=== PATIENT | male | born 1975 | race Caucasian/White ===

== ENCOUNTER 2020-06-28 13:51 | Inpatient (IN) | payer OTHER ==
[2020-06-28] MEDS ORDERED: morphine CARPU-JECT 2 MG/1 ML DISP.SYRIN IVPUSH ONE ×2 (16:08→18:46)
[2020-06-28] MEDS ORDERED: VANCOMYCIN 1 GM in D5W (PRE-DOCKED) 1,000 MG/250 ML IVPB ONE (16:09)
[2020-06-28] MEDS ORDERED: PIPERACILLIN/TAZOB 4.5 GM 4.5 GM in DEXTROSE 5%-WATER 100 ML IVPB ONE (16:09)
[2020-06-28] MEDS ORDERED: PIPERACILLIN/TAZOB 4.5 GM 4.5 GM/100 ML BAG IVPB ONE (16:12)
[2020-06-28] MEDS ORDERED: VANCOMYCIN 1 GRAM (PRE-DOCKED) 1,000 MG/250 ML BAG IVPB ONE (16:12)
[2020-06-28] MEDS ORDERED: MORPHINE SULFATE 2 MG/ML VIAL ONE ×2 (16:12→18:50)
[2020-06-28 16:49] LABS: BASO % 0.3 % (0-2.0); EOS % 1.4 % (0-4.5); HEMATOCRIT 39.5 % (35.4-49); HEMOGLOBIN 12.5 GM/dL (11.7-16.9); LYMPH % 20.1 % (8-40); MCHC 31.6 g/dl (32.0-35.9); MEAN CELL VOLUME 79.2 fl (80-96); MEAN PLT VOLUME 8.3 fl (7.5-11.1); NEUT % 67.2 % (42.8-82.8); PLATELET COUNT 238 K/MM3 (134-434); RBC 4.98 M/mm3 (4.00-5.60); RDW 14.4 % (11.9-15.9); WHITE BLOOD COUNT 7.2 K/mm3 (4.0-10.0)
[2020-06-28 17:07] LABS: CHLORIDE 105 mmol/L (98-107); POTASSIUM 3.6 mmol/L (3.5-5.1); SODIUM 141 mmol/L (136-145)
[2020-06-28 17:08] LABS: CALCIUM 8.3 mg/dL (8.5-10.1)
[2020-06-28 17:09] LABS: ALBUMIN 2.5 g/dl (3.4-5.0); ANION GAP 8 MMOL/L (8-16); BLOOD UREA NITROGEN 8.4 mg/dL (7-18); CO2 27 mmol/L (21-32); GLUCOSE,RANDOM 85 mg/dL (74-106)
[2020-06-28 17:12] LABS: SGOT/AST 26 U/L (15-37); SGPT/ALT 15 U/L (13-61)
[2020-06-28 17:14] LABS: BILIRUBIN,TOTAL 0.3 mg/dL (0.2-1); TOT PROT 7.8 g/dl (6.4-8.2)
[2020-06-28 17:15] LABS: ALK PHOS 170 U/L (45-117)
[2020-06-28 18:04] LABS: ANISOCYTOSIS 0; MACROCYTOSIS 0; PLATELET ESTIMATE NORMAL
[2020-06-28 18:27] LABS: EPI CELLS 15 /uL (0-25.1); HYALINE CASTS 2 /uL (0-3.1); URINE APPEARANCE CLEAR; URINE BACTERIA 345 /uL (0-1359); URINE BILIRUBIN NEGATIVE (NEGATIVE); URINE COLOR YELLOW; URINE GLUCOSE (UA) NEGATIVE (NEGATIVE); URINE KETONE NEGATIVE (NEGATIVE); URINE LEUK ESTERASE NEGATIVE (NEGATIVE); URINE NITRITE NEGATIVE (NEGATIVE); URINE PROTEIN 4+ (NEGATIVE); URINE RBC 6 /uL (0-23.9); URINE WBC 4 /uL (0-25.8)
[2020-06-29] MEDS ORDERED: PIPERACILLIN/TAZOB 4.5 GM 4.5 GM/100 ML BAG IVPB ONE ×2 (01:51→08:21)
[2020-06-29] MEDS ORDERED: MORPHINE SULFATE 2 MG/ML VIAL ONE ×2 (01:52→08:20)
[2020-06-29] MEDS: MORPHINE SULFATE 2 MG/ML VIAL IVPUSH PRN ×4 (02:06→22:01)
[2020-06-29] MEDS: PIPERACILLIN/TAZOB 4.5 GM 4.5 GM in DEXTROSE 5%-WATER 100 ML IVPB SCH ×3 (02:07→15:00)
[2020-06-29] MEDS ORDERED: VANCOMYCIN HCL 1,500 MG in DEXTROSE 5%-WATER - 500 ML IVPB ONE (05:00)
[2020-06-29 07:22] LABS: BASO % 0.3 % (0-2.0); EOS % 1.3 % (0-4.5); HEMATOCRIT 37.3 % (35.4-49); HEMOGLOBIN 11.7 GM/dL (11.7-16.9); LYMPH % 21.5 % (8-40); MCH 24.8 pg (25.7-33.7); MCHC 31.5 g/dl (32.0-35.9); MEAN CELL VOLUME 78.6 fl (80-96); MEAN PLT VOLUME 8.7 fl (7.5-11.1); NEUT % 61.9 % (42.8-82.8); PLATELET COUNT 205 K/MM3 (134-434); RBC 4.74 M/mm3 (4.00-5.60); RDW 14.6 % (11.9-15.9); WHITE BLOOD COUNT 4.7 K/mm3 (4.0-10.0)
[2020-06-29 07:29] LABS: POTASSIUM 3.4 mmol/L (3.5-5.1)
[2020-06-29 07:29] LABS: INR 1.06 (0.83-1.09)
[2020-06-29 07:31] LABS: BLOOD UREA NITROGEN 8.3 mg/dL (7-18); CALCIUM 7.5 mg/dL (8.5-10.1)
[2020-06-29 07:33] LABS: ALBUMIN 2.2 g/dl (3.4-5.0); MAGNESIUM 1.8 mg/dL (1.8-2.4)
[2020-06-29 07:34] LABS: CREATININE 1.2 mg/dL (0.55-1.3)
[2020-06-29 07:35] LABS: PHOSPHOROUS 3.7 mg/dL (2.5-4.9)
[2020-06-29 07:36] LABS: BILIRUBIN,TOTAL 0.4 mg/dL (0.2-1); TOT PROT 7.1 g/dl (6.4-8.2)
[2020-06-29] MEDS ORDERED: ENOXAPARIN NA (PORCINE) 40 MG/0.4 ML DISP.SYRIN SQ ONE (08:21)
[2020-06-29 08:52] LABS: ANISOCYTOSIS 2+; MACROCYTOSIS 0; PLATELET ESTIMATE NORMAL
[2020-06-29] MEDS ORDERED: POTASSIUM CHLORIDE TABS 20 MEQ TABLET.ER (FP) PO ONE ×2 (09:50→10:01)
[2020-06-29] MEDS: ENOXAPARIN NA (PORCINE) 40 MG/0.4 ML DISP.SYRIN SQ SCH (09:59)
[2020-06-29] MEDS ORDERED: VANCOMYCIN 1 GRAM (PRE-DOCKED) 1,000 MG/250 ML BAG IVPB ONE (12:45)
[2020-06-29] MEDS: VANCOMYCIN 1 GRAM (PRE-DOCKED) 1,000 MG/250 ML BAG IVPB SCH ×2 (12:54→22:02)
[2020-06-29] MEDS ORDERED: ACETAMINOPHEN 500 MG TABLET (FP) PO ONE (14:53)
[2020-06-29] MEDS ORDERED: ACETAMINOPHEN 325 MG TABLET (FP) ONE (14:55)
[2020-06-29] MEDS ORDERED: ACETAMINOPHEN 325 MG TABLET (FP) PO PRN (15:02)
[2020-06-29] MEDS: BACITRACIN 15 GM TUBE TOPICAL OINTMENT TP SCH (15:25)
[2020-06-29] MEDS ORDERED: PIPERACILLIN/TAZOBACTAM 3.375 GM VIAL IVPB ONE (17:01)
[2020-06-29] MEDS ORDERED: DEXTROSE 5%-WATER - 50 ML IVPB ONE (17:01)
[2020-06-29] MEDS: PIPERACILLIN/TAZOB 3.375 GM 3.375 GM in DEXTROSE 5%-WATER - 50 ML IVPB SCH (17:08)
[2020-06-30] MEDS ORDERED: DEXTROSE 5%-WATER - 50 ML IVPB ONE ×3 (01:00→10:05)
[2020-06-30] MEDS ORDERED: PIPERACILLIN/TAZOBACTAM 3.375 GM VIAL IVPB ONE ×3 (01:00→10:05)
[2020-06-30] MEDS: PIPERACILLIN/TAZOB 3.375 GM 3.375 GM in DEXTROSE 5%-WATER - 50 ML IVPB SCH ×2 (01:15→10:08)
[2020-06-30 09:58] LABS: HEMATOCRIT 36.1 % (35.4-49); HEMOGLOBIN 11.4 GM/dL (11.7-16.9); MCH 24.8 pg (25.7-33.7); MCHC 31.5 g/dl (32.0-35.9); MEAN CELL VOLUME 78.9 fl (80-96); MEAN PLT VOLUME 8.2 fl (7.5-11.1); PLATELET COUNT 211 K/MM3 (134-434); RBC 4.58 M/mm3 (4.00-5.60); WHITE BLOOD COUNT 3.8 K/mm3 (4.0-10.0)
[2020-06-30] MEDS: BACITRACIN 15 GM TUBE TOPICAL OINTMENT TP SCH (10:09)
[2020-06-30] MEDS: ENOXAPARIN NA (PORCINE) 40 MG/0.4 ML DISP.SYRIN SQ SCH (10:09)
[2020-06-30] MEDS: MORPHINE SULFATE 2 MG/ML VIAL IVPUSH PRN ×4 (10:26→23:29)
[2020-06-30 10:39] LABS: POTASSIUM 3.9 mmol/L (3.5-5.1)
[2020-06-30 10:41] LABS: ALBUMIN 2.4 g/dl (3.4-5.0); BLOOD UREA NITROGEN 7.3 mg/dL (7-18); CALCIUM 8.5 mg/dL (8.5-10.1)
[2020-06-30 10:44] LABS: CREATININE 1.2 mg/dL (0.55-1.3)
[2020-06-30 10:45] LABS: PHOSPHOROUS 2.9 mg/dL (2.5-4.9)
[2020-06-30 10:46] LABS: BILIRUBIN,TOTAL 0.2 mg/dL (0.2-1); TOT PROT 7.3 g/dl (6.4-8.2)
[2020-06-30 11:26] VITALS: BMI 27.4
[2020-06-30] MEDS: VANCOMYCIN 1 GRAM (PRE-DOCKED) 1,000 MG/250 ML BAG IVPB SCH ×2 (11:27→21:15)
[2020-06-30 17:38] LABS: EPI CELLS 4 /uL (0-25.1); HYALINE CASTS 0 /uL (0-3.1); PH,URINE 7.5 (5.0-8.0); URINE APPEARANCE CLEAR; URINE BACTERIA 269 /uL (0-1359); URINE BILIRUBIN NEGATIVE (NEGATIVE); URINE COLOR YELLOW; URINE GLUCOSE (UA) NEGATIVE (NEGATIVE); URINE KETONE NEGATIVE (NEGATIVE); URINE LEUK ESTERASE NEGATIVE (NEGATIVE); URINE NITRITE NEGATIVE (NEGATIVE); URINE PROTEIN 2+ (NEGATIVE); URINE RBC 2 /uL (0-23.9); URINE UROBILINOGEN 0.2 mg/dL (0.2-1.0); URINE WBC 6 /uL (0-25.8)
[2020-07-01 09:06] LABS: BASO % 0.4 % (0-2.0); EOS % 2.3 % (0-4.5); HEMATOCRIT 37.2 % (35.4-49); HEMOGLOBIN 11.9 GM/dL (11.7-16.9); LYMPH % 39.3 % (8-40); MCH 25.2 pg (25.7-33.7); MCHC 32.1 g/dl (32.0-35.9); MEAN CELL VOLUME 78.4 fl (80-96); MEAN PLT VOLUME 7.9 fl (7.5-11.1); MONO % 12.9 % (3.8-10.2); NEUT % 45.1 % (42.8-82.8); PLATELET COUNT 227 K/MM3 (134-434); RBC 4.74 M/mm3 (4.00-5.60); RDW 14.8 % (11.9-15.9); WHITE BLOOD COUNT 3.9 K/mm3 (4.0-10.0)
[2020-07-01 09:36] LABS: ALBUMIN 2.4 g/dl (3.4-5.0)
[2020-07-01 09:37] LABS: BILIRUBIN,TOTAL 0.3 mg/dL (0.2-1); BLOOD UREA NITROGEN 7.1 mg/dL (7-18); TOT PROT 7.2 g/dl (6.4-8.2)
[2020-07-01 09:39] LABS: CREATININE 0.9 mg/dL (0.55-1.3)
[2020-07-01 09:59] LABS: CALCIUM 8.3 mg/dL (8.5-10.1)
[2020-07-01] MEDS: BACITRACIN 15 GM TUBE TOPICAL OINTMENT TP SCH (10:58)
[2020-07-01] MEDS: ENOXAPARIN NA (PORCINE) 40 MG/0.4 ML DISP.SYRIN SQ SCH (10:58)
[2020-07-01] MEDS: MULTIVITAMINS (DAILY MVI) TABLET (FP) PO SCH (10:58)
[2020-07-01] MEDS: AMINO ACIDS/PROTEIN HYDROLYS 30 ML LIQUID.PKT PO SCH (10:58)
[2020-07-01] MEDS: VANCOMYCIN 1 GRAM (PRE-DOCKED) 1,000 MG/250 ML BAG IVPB SCH ×2 (12:02→21:43)
[2020-07-01] MEDS: SULFAMETHOXAZOLE/TRIMETHOPRIM 800MG/160MG D.S. TABLET PO SCH (12:02)
[2020-07-01 12:25] LABS: ANISOCYTOSIS 0; MACROCYTOSIS 0; PLATELET ESTIMATE NORMAL
[2020-07-01 13:08] LABS: HIV INTERPRETATION PRESUMPTIVE POSITIVE (NEGATIVE)
[2020-07-01] MEDS ORDERED: traMADol HCL 50 MG TABLET PO PRN (16:44)
[2020-07-01] MEDS: NYSTATIN 500,000 UNITS/5 ML SUSPENSION PO SCH ×2 (17:08→23:27)
[2020-07-01] MEDS ORDERED: PENICILLIN G BENZATHINE 2,400,000 UNIT/4 ML PFS IM ONE (20:42)
[2020-07-01] MEDS: ACETAMINOPHEN 325 MG TABLET (FP) PO PRN (21:42)
[2020-07-02] MEDS: NYSTATIN 500,000 UNITS/5 ML SUSPENSION PO SCH ×3 (05:16→17:36)
[2020-07-02] MEDS: ENOXAPARIN NA (PORCINE) 40 MG/0.4 ML DISP.SYRIN SQ SCH (10:42)
[2020-07-02] MEDS: AMINO ACIDS/PROTEIN HYDROLYS 30 ML LIQUID.PKT PO SCH (10:42)
[2020-07-02] MEDS: SULFAMETHOXAZOLE/TRIMETHOPRIM 800MG/160MG D.S. TABLET PO SCH (10:42)
[2020-07-02] MEDS: MULTIVITAMINS (DAILY MVI) TABLET (FP) PO SCH (10:42)
[2020-07-02] MEDS: VANCOMYCIN 1 GRAM (PRE-DOCKED) 1,000 MG/250 ML BAG IVPB SCH (12:43)
[2020-07-02] MEDS ORDERED: cefTRIAXone SODIUM 1 GM VIAL ONE (14:54)
[2020-07-02] MEDS ORDERED: DEXTROSE 5%-WATER - 50 ML IVPB ONE (14:54)
[2020-07-02] MEDS: CEFTRIAXONE 1 GM in DEXTROSE 5%-WATER - 50 ML IVPB SCH (15:04)
[2020-07-02] MEDS: ACETAMINOPHEN 325 MG TABLET (FP) PO PRN (19:29)
[2020-07-02] MEDS: VANCOMYCIN HCL 1,250 MG in DEXTROSE 5%-WATER - 250 ML IVPB SCH (23:52)
[2020-07-03] MEDS: NYSTATIN 500,000 UNITS/5 ML SUSPENSION PO SCH ×4 (01:38→17:29)
[2020-07-03 08:35] LABS: HEMATOCRIT 37.9 % (35.4-49); HEMOGLOBIN 12.1 GM/dL (11.7-16.9); MCH 24.8 pg (25.7-33.7); MEAN CELL VOLUME 77.7 fl (80-96); MEAN PLT VOLUME 8.4 fl (7.5-11.1); PLATELET COUNT 223 K/MM3 (134-434); RBC 4.88 M/mm3 (4.00-5.60); RDW 14.8 % (11.9-15.9); WHITE BLOOD COUNT 3.3 K/mm3 (4.0-10.0)
[2020-07-03 08:38] LABS: POTASSIUM 3.6 mmol/L (3.5-5.1)
[2020-07-03 08:52] LABS: CALCIUM 7.9 mg/dL (8.5-10.1)
[2020-07-03 08:53] LABS: BLOOD UREA NITROGEN 9.8 mg/dL (7-18)
[2020-07-03] MEDS ORDERED: cefTRIAXone SODIUM 1 GM VIAL ONE (10:05)
[2020-07-03] MEDS ORDERED: DEXTROSE 5%-WATER - 50 ML IVPB ONE (10:05)
[2020-07-03] MEDS: ENOXAPARIN NA (PORCINE) 40 MG/0.4 ML DISP.SYRIN SQ SCH (10:09)
[2020-07-03] MEDS: CEFTRIAXONE 1 GM in DEXTROSE 5%-WATER - 50 ML IVPB SCH (10:10)
[2020-07-03] MEDS: MULTIVITAMINS (DAILY MVI) TABLET (FP) PO SCH (10:10)
[2020-07-03] MEDS: SULFAMETHOXAZOLE/TRIMETHOPRIM 800MG/160MG D.S. TABLET PO SCH ×2 (10:10→21:57)
[2020-07-03] MEDS: AMINO ACIDS/PROTEIN HYDROLYS 30 ML LIQUID.PKT PO SCH (10:10)
[2020-07-03] MEDS ORDERED: PT OWN MED DRAWER 7, Y5N ONE ×2 (10:27→21:24)
[2020-07-03] MEDS: VANCOMYCIN HCL 1,250 MG in DEXTROSE 5%-WATER - 250 ML IVPB SCH ×2 (10:46→21:59)
[2020-07-04] MEDS: NYSTATIN 500,000 UNITS/5 ML SUSPENSION PO SCH ×3 (06:00→12:55)
[2020-07-04 09:30] LABS: HEMOGLOBIN 12.5 GM/dL (11.7-16.9); MEAN CELL VOLUME 78.1 fl (80-96); MEAN PLT VOLUME 8.2 fl (7.5-11.1); PLATELET COUNT 210 K/MM3 (134-434); RDW 14.7 % (11.9-15.9); WHITE BLOOD COUNT 3.8 K/mm3 (4.0-10.0)
[2020-07-04] MEDS: AMINO ACIDS/PROTEIN HYDROLYS 30 ML LIQUID.PKT PO SCH (09:40)
[2020-07-04] MEDS: SULFAMETHOXAZOLE/TRIMETHOPRIM 800MG/160MG D.S. TABLET PO SCH (09:40)
[2020-07-04] MEDS: ENOXAPARIN NA (PORCINE) 40 MG/0.4 ML DISP.SYRIN SQ SCH (09:40)
[2020-07-04] MEDS: MULTIVITAMINS (DAILY MVI) TABLET (FP) PO SCH (09:40)
[2020-07-04] MEDS: VANCOMYCIN HCL 1,250 MG in DEXTROSE 5%-WATER - 250 ML IVPB SCH (09:42)
[2020-07-04 09:46] LABS: POTASSIUM 3.9 mmol/L (3.5-5.1)
[2020-07-04] MEDS ORDERED: cefTRIAXone SODIUM 1 GM VIAL ONE (09:52)
[2020-07-04] MEDS ORDERED: DEXTROSE 5%-WATER - 50 ML IVPB ONE (09:52)
[2020-07-04 09:56] LABS: CALCIUM 8.7 mg/dL (8.5-10.1)
[2020-07-04 09:57] LABS: BLOOD UREA NITROGEN 10.9 mg/dL (7-18)
[2020-07-04 10:00] LABS: CREATININE 1.1 mg/dL (0.55-1.3)
[2020-07-04] MEDS: CEFTRIAXONE 1 GM in DEXTROSE 5%-WATER - 50 ML IVPB SCH (11:10)
[2020-07-04 14:48] VITALS: BP 124/85; PULSE 95; TEMP 98.4
== END 2020-07-04 18:03 | disposition home or self-care (01) | DRG 894 ==
LOC: JER 13:51 → JERBED 18:46 → J8W 06-29 15:08
PROVIDERS: ADMIT Internal Medicine; ATTEND Internal Medicine
PROC: 0W983ZX Drainage of Chest Wall, Percutaneous Approach, Diagnostic (ICD-10-PCS; principal; 2020-06-28)
DX: L02.411 Cutaneous abscess of right axilla (principal); A49.02 Methicillin resistant Staphylococcus aureus infection, unspecified site; R80.9 Proteinuria, unspecified; R00.0 Tachycardia, unspecified; F12.90 Cannabis use, unspecified, uncomplicated; D72.819 Decreased white blood cell count, unspecified; R59.9 Enlarged lymph nodes, unspecified; E88.09 Other disorders of plasma-protein metabolism, not elsewhere classified; B37.0 Candidal stomatitis; R78.81 Bacteremia; L02.416 Cutaneous abscess of left lower limb; B20 Human immunodeficiency virus [HIV] disease; N18.9 Chronic kidney disease, unspecified
CPT/HCPCS: 36415; 71046-TC-FY; 71250-TC; 73700-TC-RT; 76775-TC; 80048; 80053; 80061; 80074; 81003; 82550; 82565; 83605; 83615; 83721; 83735; 84100; 84155; 84156; 84165; 84484; 85025; 85027; 85610; 86038; 86359; 86360; 86480; 86593; 86780; 86803; 86850; 86900; 86901; 87040; 87070; 87186; 87205; 87389; 87491; 87536; 87591; 93005; 93010; 99285-25; C9803; G0480; U0003

== ENCOUNTER 2020-11-21 10:44 | Emergency (ER) | payer OTHER ==
[2020-11-21 11:04] VITALS: TEMP 98.5; BMI 23.1
[2020-11-21] MEDS ORDERED: KETOROLAC TROMETHAMINE 30 MG/1 ML VIAL ONE (11:59)
[2020-11-21] MEDS ORDERED: KETOROLAC TROMETHAMINE 60 MG/2 ML VIAL IM ONE (11:59)
[2020-11-21 12:28] VITALS: BP 118/76; PULSE 89
== END 2020-11-21 12:58 | disposition home or self-care (01) ==
LOC: JER 10:44 → JERFT 10:44
PROC: 3E0233Z Introduction of Anti-inflammatory into Muscle, Percutaneous Approach (ICD-10-PCS; principal; 2020-11-21)
DX: M54.5 Low back pain (principal)
CPT/HCPCS: 99284-25

== ENCOUNTER 2020-12-20 18:15 | Inpatient (IN) | payer OTHER ==
[2020-12-20] MEDS ORDERED: SODIUM CHLORIDE 0.9% 500 ML INFUS.BAG IV ONE ×2 (19:35→19:36)
[2020-12-20] MEDS ORDERED: ACETAMINOPHEN 1000 MG/100 ML VIAL (NON FORMULARY) IVPB ONE (19:37)
[2020-12-20] MEDS ORDERED: ACETAMINOPHEN INJECTION 100 ML IVPB ONE (19:56)
[2020-12-20 20:34] LABS: BASO % 0.7 % (0-2.0); HEMATOCRIT 26.4 % (35.4-49); HEMOGLOBIN 8.5 GM/dL (11.7-16.9); MCHC 32.3 g/dl (32.0-35.9); MEAN CELL VOLUME 80.4 fl (80-96); MEAN PLT VOLUME 9.6 fl (7.5-11.1); MONO % 14.3 % (3.8-10.2); PLATELET COUNT 153 10^3/uL (134-434); RBC 3.28 M/mm3 (4.00-5.60); RDW 14.4 % (11.9-15.9); WHITE BLOOD COUNT 5.3 K/mm3 (4.0-10.0)
[2020-12-20 20:56] LABS: ALBUMIN 2.1 g/dl (3.4-5.0)
[2020-12-20 20:59] LABS: CREATININE 2.4 mg/dL (0.55-1.3)
[2020-12-20 21:01] LABS: BILIRUBIN,TOTAL 0.4 mg/dL (0.2-1); TOT PROT 8.4 g/dl (6.4-8.2)
[2020-12-20 21:21] LABS: EPI CELLS 10 /uL (0-25.1); HYALINE CASTS 2 /uL (0-3.1); URINE APPEARANCE CLOUDY; URINE BACTERIA 226 /uL (0-1359); URINE BILIRUBIN NEGATIVE (NEGATIVE); URINE COLOR YELLOW; URINE GLUCOSE (UA) NEGATIVE (NEGATIVE); URINE KETONE NEGATIVE (NEGATIVE); URINE LEUK ESTERASE 2+ (NEGATIVE); URINE NITRITE NEGATIVE (NEGATIVE); URINE PROTEIN 4+ (NEGATIVE); URINE RBC 81 /uL (0-23.9); URINE UROBILINOGEN 0.2 mg/dL (0.2-1.0); URINE WBC 1048 /uL (0-25.8)
[2020-12-20 21:53] LABS: ANISOCYTOSIS 0; MACROCYTOSIS 0; PLATELET ESTIMATE DECREASED
[2020-12-20] MEDS ORDERED: CEFEPIME HCL/D5W 2 GM/50 ML BAG IVPB ONE (23:29)
[2020-12-20] MEDS ORDERED: VANCOMYCIN 1 GM in D5W (PRE-DOCKED) 1,000 MG/250 ML IVPB ONE (23:30)
[2020-12-20] MEDS ORDERED: morphine CARPU-JECT 4 MG/1 ML DISP.SYRIN IVPUSH ONE (23:32)
[2020-12-21] MEDS ORDERED: CEFEPIME 2 GM/100 ML BAG IVPB ONE (00:09)
[2020-12-21] MEDS ORDERED: morphine SULFATE 4 MG/ML VIAL ONE (00:09)
[2020-12-21] MEDS ORDERED: VANCOMYCIN 1 GRAM (PRE-DOCKED) 1,000 MG/250 ML BAG IVPB ONE ×2 (02:22→16:11)
[2020-12-21] MEDS ORDERED: SODIUM CHLORIDE 1,000 ML IV SCH (05:45)
[2020-12-21] MEDS ORDERED: ACETAMINOPHEN 1000 MG/100 ML VIAL (NON FORMULARY) IVPB ONE (06:10)
[2020-12-21] MEDS ORDERED: SODIUM CHLORIDE 1,000 ML IV STA ×2 (08:22→09:41)
[2020-12-21] MEDS: FLUCONAZOLE 200 MG/NS 100 ML IVPB SCH (10:00)
[2020-12-21 12:08] LABS: BASO % 0.1 % (0-2.0); HEMATOCRIT 23.4 % (35.4-49); HEMOGLOBIN 7.4 GM/dL (11.7-16.9); MCH 25.7 pg (25.7-33.7); MCHC 31.8 g/dl (32.0-35.9); MEAN CELL VOLUME 80.6 fl (80-96); MEAN PLT VOLUME 10.1 fl (7.5-11.1); MONO % 10.8 % (3.8-10.2); NEUT % 78.1 % (42.8-82.8); PLATELET COUNT 121 10^3/uL (134-434); RDW 14.1 % (11.9-15.9); RETICULOCYTES 0.34 % (0.5-1.5); WHITE BLOOD COUNT 4.9 K/mm3 (4.0-10.0)
[2020-12-21 12:14] LABS: INR 1.23 (0.83-1.09)
[2020-12-21 12:38] LABS: CALCIUM 7.5 mg/dL (8.5-10.1)
[2020-12-21 12:39] LABS: ALBUMIN 1.9 g/dl (3.4-5.0); BLOOD UREA NITROGEN 23.4 mg/dL (7-18)
[2020-12-21 12:42] LABS: CREATININE 2.2 mg/dL (0.55-1.3)
[2020-12-21 12:44] LABS: BILIRUBIN,TOTAL 0.3 mg/dL (0.2-1); TOT PROT 6.6 g/dl (6.4-8.2)
[2020-12-21 12:57] LABS: ANISOCYTOSIS 0; MACROCYTOSIS 0; OVALOCYTE 1+; PLATELET ESTIMATE DECREASED
[2020-12-21] MEDS: SODIUM CHLORIDE 1,000 ML IV SCH (13:00)
[2020-12-21] MEDS ORDERED: VANCOMYCIN 1 GM in D5W (PRE-DOCKED) 1,000 MG/250 ML IVPB SCH ×2 (15:30→15:45)
[2020-12-21] MEDS: ACETAMINOPHEN 1000 MG/100 ML VIAL (NON FORMULARY) IVPB PRN ×2 (16:00→22:55)
[2020-12-21] MEDS ORDERED: ACETAMINOPHEN INJECTION 100 ML IVPB ONE (16:03)
[2020-12-21] MEDS ORDERED: oxyCODONE HCL 5 MG TABLET PO ONE ×2 (16:32→23:48)
[2020-12-21] MEDS ORDERED: oxyCODONE HCL 5 MG TABLET ONE (16:49)
[2020-12-21] MEDS ORDERED: CEFEPIME 1 GM in DEXTROSE 5%-WATER 1 GM/100 ML BAG IVPB ONE (22:00)
[2020-12-21] MEDS ORDERED: DEXTROSE 5%-WATER 100 ML IVPB ONE (22:47)
[2020-12-21] MEDS ORDERED: CEFEPIME HCL 1 GM VIAL (RESTRICTED TO ID) ONE (22:47)
[2020-12-21 23:45] VITALS: BMI 24.0
[2020-12-22] MEDS ORDERED: PT OWN MED DRAWER 7, Y5N ONE (08:43)
[2020-12-22] MEDS: FLUCONAZOLE 200 MG/NS 100 ML IVPB SCH (09:44)
[2020-12-22] MEDS: FERROUS SO4 325 MG TABLET (FP) PO SCH (09:44)
[2020-12-22] MEDS: MORPHINE SULFATE 2 MG/ML VIAL IVPUSH PRN ×2 (09:44→19:30)
[2020-12-22 11:14] LABS: HEMOGLOBIN 8.3 GM/dL (11.7-16.9); MCH 25.4 pg (25.7-33.7); MCHC 30.8 g/dl (32.0-35.9); MEAN CELL VOLUME 82.2 fl (80-96); MEAN PLT VOLUME 9.2 fl (7.5-11.1); PLATELET COUNT 122 10^3/uL (134-434); RBC 3.28 M/mm3 (4.00-5.60); RDW 14.6 % (11.9-15.9); WHITE BLOOD COUNT 3.7 K/mm3 (4.0-10.0)
[2020-12-22 11:35] LABS: CALCIUM 7.8 mg/dL (8.5-10.1)
[2020-12-22 11:36] LABS: ALBUMIN 1.9 g/dl (3.4-5.0); BLOOD UREA NITROGEN 19.2 mg/dL (7-18); MAGNESIUM 1.9 mg/dL (1.8-2.4)
[2020-12-22 11:39] LABS: BILIRUBIN,TOTAL 0.3 mg/dL (0.2-1); PHOSPHOROUS 2.5 mg/dL (2.5-4.9); TOT PROT 6.9 g/dl (6.4-8.2)
[2020-12-22] MEDS ORDERED: VANCOMYCIN 1 GRAM (PRE-DOCKED) 1,000 MG/250 ML BAG IVPB ONE (13:53)
[2020-12-22] MEDS: SODIUM CHLORIDE 1,000 ML IV SCH (14:16)
[2020-12-22 15:06] LABS: EPI CELLS 17 /uL (0-25.1); HYALINE CASTS 2 /uL (0-3.1); PH,URINE 7.5 (5.0-8.0); URINE APPEARANCE CLEAR; URINE BACTERIA 28 /uL (0-1359); URINE BILIRUBIN NEGATIVE (NEGATIVE); URINE COLOR YELLOW; URINE GLUCOSE (UA) NEGATIVE (NEGATIVE); URINE KETONE NEGATIVE (NEGATIVE); URINE LEUK ESTERASE TRACE (NEGATIVE); URINE NITRITE NEGATIVE (NEGATIVE); URINE PROTEIN 2+ (NEGATIVE); URINE RBC 8 /uL (0-23.9); URINE WBC 88 /uL (0-25.8)
[2020-12-22] MEDS ORDERED: CEFEPIME HCL/D5W 1 GM/50 ML BAG IVPB SCH (22:00)
[2020-12-23] MEDS: MORPHINE SULFATE 2 MG/ML VIAL IVPUSH PRN ×3 (05:38→17:57)
[2020-12-23] MEDS ORDERED: PT OWN MED DRAWER 7, Y5N ONE (10:29)
[2020-12-23] MEDS: FLUCONAZOLE 200 MG/NS 100 ML IVPB SCH (11:51)
[2020-12-23] MEDS: FERROUS SO4 325 MG TABLET (FP) PO SCH (11:51)
[2020-12-23 12:43] LABS: BASO % 0.3 % (0-2.0); EOS % 0.5 % (0-4.5); HEMATOCRIT 23.6 % (35.4-49); HEMOGLOBIN 7.4 GM/dL (11.7-16.9); LYMPH % 20.5 % (8-40); MCH 25.7 pg (25.7-33.7); MCHC 31.5 g/dl (32.0-35.9); MEAN CELL VOLUME 81.5 fl (80-96); MEAN PLT VOLUME 9.2 fl (7.5-11.1); NEUT % 62.7 % (42.8-82.8); PLATELET COUNT 111 10^3/uL (134-434); RBC 2.89 M/mm3 (4.00-5.60); RDW 14.2 % (11.9-15.9); WHITE BLOOD COUNT 3.8 K/mm3 (4.0-10.0)
[2020-12-23 12:49] LABS: BLOOD UREA NITROGEN 11.1 mg/dL (7-18); CALCIUM 7.4 mg/dL (8.5-10.1)
[2020-12-23 12:50] LABS: ALBUMIN 1.7 g/dl (3.4-5.0); MAGNESIUM 1.7 mg/dL (1.8-2.4)
[2020-12-23 12:52] LABS: CREATININE 1.7 mg/dL (0.55-1.3); PHOSPHOROUS 2.6 mg/dL (2.5-4.9)
[2020-12-23 12:53] LABS: BILIRUBIN,TOTAL 0.2 mg/dL (0.2-1); TOT PROT 6.3 g/dl (6.4-8.2)
[2020-12-23] MEDS: VANCOMYCIN 1 GRAM (PRE-DOCKED) 1,000 MG/250 ML BAG IVPB SCH ×2 (13:06→23:09)
[2020-12-23 13:40] LABS: ANISOCYTOSIS 0; HELMET CELLS 0; HOWELL-JOLLY BODIES 0; MACROCYTOSIS 0; OVALOCYTE 0; PLATELET ESTIMATE DECREASED; ROULEAU 0; SICKELED CELLS 0; TARGET CELLS 0; TEAR DROP CELLS 0; TOXIC GRANULATION 0
[2020-12-23] MEDS ORDERED: MAGNESIUM OXIDE 400 MG TABLET (FP) PO ONE (15:07)
[2020-12-23] MEDS ORDERED: POTASSIUM CHLORIDE TABS 20 MEQ TABLET.ER (FP) PO ONE (15:07)
[2020-12-23] MEDS ORDERED: SODIUM CHLORIDE 1,000 ML IV SCH (15:11)
[2020-12-24] MEDS: MORPHINE SULFATE 2 MG/ML VIAL IVPUSH PRN ×4 (00:45→23:11)
[2020-12-24] MEDS: SODIUM CHLORIDE 1,000 ML IV SCH ×3 (07:46→17:00)
[2020-12-24 08:07] LABS: BASO % 0.7 % (0-2.0); EOS % 1.7 % (0-4.5); HEMATOCRIT 22.5 % (35.4-49); HEMOGLOBIN 7.2 GM/dL (11.7-16.9); LYMPH % 28.9 % (8-40); MCH 25.9 pg (25.7-33.7); MEAN PLT VOLUME 8.2 fl (7.5-11.1); MONO % 18.6 % (3.8-10.2); NEUT % 50.1 % (42.8-82.8); PLATELET COUNT 125 10^3/uL (134-434); RBC 2.78 M/mm3 (4.00-5.60); RDW 14.5 % (11.9-15.9); WHITE BLOOD COUNT 3.1 K/mm3 (4.0-10.0)
[2020-12-24 08:24] LABS: BLOOD UREA NITROGEN 10.1 mg/dL (7-18); CALCIUM 7.6 mg/dL (8.5-10.1)
[2020-12-24 08:25] LABS: ALBUMIN 1.7 g/dl (3.4-5.0); MAGNESIUM 1.8 mg/dL (1.8-2.4)
[2020-12-24 08:28] LABS: CREATININE 1.6 mg/dL (0.55-1.3); PHOSPHOROUS 3.5 mg/dL (2.5-4.9)
[2020-12-24 08:29] LABS: BILIRUBIN,TOTAL 0.4 mg/dL (0.2-1)
[2020-12-24 08:30] LABS: TOT PROT 6.3 g/dl (6.4-8.2)
[2020-12-24] MEDS: FERROUS SO4 325 MG TABLET (FP) PO SCH (09:46)
[2020-12-24] MEDS: SULFAMETHOXAZOLE/TRIMETHOPRIM 800MG/160MG D.S. TABLET PO SCH (09:46)
[2020-12-24 10:14] LABS: ANISOCYTOSIS 0; MACROCYTOSIS 0; PLATELET ESTIMATE DECREASED
[2020-12-24] MEDS: VANCOMYCIN 1 GRAM (PRE-DOCKED) 1,000 MG/250 ML BAG IVPB SCH ×2 (11:37→23:12)
[2020-12-24] MEDS ORDERED: POTASSIUM CHLORIDE TABS 20 MEQ TABLET.ER (FP) PO ONE (12:39)
[2020-12-25 08:09] LABS: BASO % 0.6 % (0-2.0); HEMOGLOBIN 7.6 GM/dL (11.7-16.9); MCH 25.5 pg (25.7-33.7); MCHC 31.5 g/dl (32.0-35.9); MEAN CELL VOLUME 81.1 fl (80-96); MEAN PLT VOLUME 8.3 fl (7.5-11.1); MONO % 12.4 % (3.8-10.2); PLATELET COUNT 141 10^3/uL (134-434); RBC 2.96 M/mm3 (4.00-5.60); RDW 14.4 % (11.9-15.9); WHITE BLOOD COUNT 2.9 K/mm3 (4.0-10.0)
[2020-12-25 08:30] LABS: CALCIUM 7.8 mg/dL (8.5-10.1)
[2020-12-25 08:31] LABS: ALBUMIN 1.7 g/dl (3.4-5.0); BLOOD UREA NITROGEN 8.3 mg/dL (7-18)
[2020-12-25 08:34] LABS: CREATININE 1.6 mg/dL (0.55-1.3); PHOSPHOROUS 3.8 mg/dL (2.5-4.9)
[2020-12-25 08:35] LABS: BILIRUBIN,TOTAL 0.2 mg/dL (0.2-1)
[2020-12-25 08:36] LABS: MAGNESIUM 1.6 mg/dL (1.8-2.4); TOT PROT 6.2 g/dl (6.4-8.2)
[2020-12-25] MEDS: SODIUM CHLORIDE 1,000 ML IV SCH ×2 (10:39→14:03)
[2020-12-25] MEDS: MORPHINE SULFATE 2 MG/ML VIAL IVPUSH PRN ×2 (10:39→20:35)
[2020-12-25 11:43] LABS: ANISOCYTOSIS 1+; MACROCYTOSIS 0; PLATELET ESTIMATE DECREASED
[2020-12-25] MEDS: VANCOMYCIN 1 GRAM (PRE-DOCKED) 1,000 MG/250 ML BAG IVPB SCH ×2 (14:02→23:30)
[2020-12-25] MEDS ORDERED: MAGNESIUM OXIDE 400 MG TABLET (FP) PO ONE (15:46)
[2020-12-26] MEDS: SODIUM CHLORIDE 1,000 ML IV SCH ×2 (04:02→19:19)
[2020-12-26] MEDS: MORPHINE SULFATE 2 MG/ML VIAL IVPUSH PRN ×3 (04:03→19:20)
[2020-12-26 09:02] LABS: BASO % 0.9 % (0-2.0); EOS % 2.4 % (0-4.5); HEMATOCRIT 23.7 % (35.4-49); HEMOGLOBIN 7.7 GM/dL (11.7-16.9); LYMPH % 21.8 % (8-40); MCH 25.7 pg (25.7-33.7); MCHC 32.2 g/dl (32.0-35.9); MEAN CELL VOLUME 79.8 fl (80-96); MEAN PLT VOLUME 7.8 fl (7.5-11.1); MONO % 13.8 % (3.8-10.2); NEUT % 61.1 % (42.8-82.8); PLATELET COUNT 179 10^3/uL (134-434); RBC 2.97 M/mm3 (4.00-5.60); RDW 14.5 % (11.9-15.9); WHITE BLOOD COUNT 3.2 K/mm3 (4.0-10.0)
[2020-12-26] MEDS: SULFAMETHOXAZOLE/TRIMETHOPRIM 800MG/160MG D.S. TABLET PO SCH (09:25)
[2020-12-26 09:29] LABS: ALBUMIN 1.8 g/dl (3.4-5.0); BLOOD UREA NITROGEN 4.5 mg/dL (7-18); CALCIUM 7.5 mg/dL (8.5-10.1); MAGNESIUM 1.7 mg/dL (1.8-2.4)
[2020-12-26 09:32] LABS: CREATININE 1.4 mg/dL (0.55-1.3)
[2020-12-26 09:33] LABS: BILIRUBIN,TOTAL 0.3 mg/dL (0.2-1); PHOSPHOROUS 3.1 mg/dL (2.5-4.9)
[2020-12-26 09:34] LABS: TOT PROT 6.6 g/dl (6.4-8.2)
[2020-12-26 10:34] LABS: ANISOCYTOSIS 0; MACROCYTOSIS 0; PLATELET ESTIMATE NORMAL
[2020-12-26] MEDS: VANCOMYCIN 1 GRAM (PRE-DOCKED) 1,000 MG/250 ML BAG IVPB SCH (11:30)
[2020-12-26] MEDS: DAPTOMYCIN 680 MG in SODIUM CHLORIDE 50 ML IVPB SCH (17:37)
[2020-12-26] MEDS: NYSTATIN 500,000 UNITS/5 ML SUSPENSION PO SCH (23:51)
[2020-12-27] MEDS: MORPHINE SULFATE 2 MG/ML VIAL IVPUSH PRN ×4 (01:32→23:41)
[2020-12-27] MEDS: NYSTATIN 500,000 UNITS/5 ML SUSPENSION PO SCH ×4 (05:29→23:59)
[2020-12-27 08:33] LABS: BASO % 0.5 % (0-2.0); EOS % 1.4 % (0-4.5); HEMATOCRIT 24.1 % (35.4-49); HEMOGLOBIN 7.5 GM/dL (11.7-16.9); LYMPH % 27.2 % (8-40); MCH 25.3 pg (25.7-33.7); MCHC 31.3 g/dl (32.0-35.9); MEAN CELL VOLUME 80.8 fl (80-96); MEAN PLT VOLUME 8.3 fl (7.5-11.1); MONO % 14.7 % (3.8-10.2); NEUT % 56.2 % (42.8-82.8); PLATELET COUNT 198 10^3/uL (134-434); RBC 2.98 M/mm3 (4.00-5.60); RDW 14.6 % (11.9-15.9); WHITE BLOOD COUNT 3.1 K/mm3 (4.0-10.0)
[2020-12-27 08:55] LABS: ALBUMIN 1.8 g/dl (3.4-5.0); CALCIUM 7.7 mg/dL (8.5-10.1)
[2020-12-27 08:56] LABS: BLOOD UREA NITROGEN 3.4 mg/dL (7-18); MAGNESIUM 1.7 mg/dL (1.8-2.4)
[2020-12-27 08:59] LABS: CREATININE 1.4 mg/dL (0.55-1.3); PHOSPHOROUS 3.2 mg/dL (2.5-4.9)
[2020-12-27 09:00] LABS: BILIRUBIN,TOTAL 0.3 mg/dL (0.2-1); TOT PROT 6.4 g/dl (6.4-8.2)
[2020-12-27] MEDS ORDERED: AZITHROMYCIN 600 MG TABLET PO SCH (10:00)
[2020-12-27] MEDS ORDERED: PT OWN MED DRAWER 7, Y5N ONE ×2 (10:07→16:16)
[2020-12-27] MEDS: SODIUM CHLORIDE 1,000 ML IV SCH ×2 (10:46→12:42)
[2020-12-27 11:53] LABS: ANISOCYTOSIS 1+; MACROCYTOSIS 0; PLATELET ESTIMATE NORMAL
[2020-12-27] MEDS: DAPTOMYCIN 680 MG in SODIUM CHLORIDE 50 ML IVPB SCH (18:05)
[2020-12-28] MEDS: SODIUM CHLORIDE 1,000 ML IV SCH ×2 (06:27→14:10)
[2020-12-28] MEDS: NYSTATIN 500,000 UNITS/5 ML SUSPENSION PO SCH ×3 (06:27→17:06)
[2020-12-28 07:17] LABS: BASO % 0.5 % (0-2.0); EOS % 1.5 % (0-4.5); HEMATOCRIT 25.3 % (35.4-49); HEMOGLOBIN 7.9 GM/dL (11.7-16.9); LYMPH % 31.3 % (8-40); MCH 25.2 pg (25.7-33.7); MCHC 31.2 g/dl (32.0-35.9); MEAN CELL VOLUME 80.8 fl (80-96); MEAN PLT VOLUME 8.8 fl (7.5-11.1); MONO % 11.7 % (3.8-10.2); PLATELET COUNT 232 10^3/uL (134-434); RBC 3.13 M/mm3 (4.00-5.60); RDW 14.3 % (11.9-15.9); WHITE BLOOD COUNT 3.1 K/mm3 (4.0-10.0)
[2020-12-28 07:31] LABS: CALCIUM 7.8 mg/dL (8.5-10.1)
[2020-12-28 07:32] LABS: ALBUMIN 1.9 g/dl (3.4-5.0); MAGNESIUM 1.7 mg/dL (1.8-2.4)
[2020-12-28 07:35] LABS: BLOOD UREA NITROGEN 5.3 mg/dL (7-18); CREATININE 1.4 mg/dL (0.55-1.3)
[2020-12-28 07:36] LABS: BILIRUBIN,TOTAL 0.2 mg/dL (0.2-1); TOT PROT 6.7 g/dl (6.4-8.2)
[2020-12-28 07:38] LABS: PHOSPHOROUS 3.4 mg/dL (2.5-4.9)
[2020-12-28] MEDS: MORPHINE SULFATE 2 MG/ML VIAL IVPUSH PRN (08:50)
[2020-12-28 10:38] LABS: ANISOCYTOSIS 1+; MACROCYTOSIS 1+; OVALOCYTE 1+; PLATELET ESTIMATE NORMAL; TEAR DROP CELLS 1+
[2020-12-28] MEDS: BICTEGRAV/EMTRICIT/TENOFOV (BIKTARVY) 50-200-25 MG TABLET PO SCH (12:04)
[2020-12-28] MEDS: ACETAMINOPHEN 325 MG TABLET (FP) PO PRN ×2 (14:18→21:17)
[2020-12-28] MEDS: DAPTOMYCIN 680 MG in SODIUM CHLORIDE 50 ML IVPB SCH (16:52)
[2020-12-29] MEDS: NYSTATIN 500,000 UNITS/5 ML SUSPENSION PO SCH ×5 (00:03→23:59)
[2020-12-29] MEDS: SODIUM CHLORIDE 1,000 ML IV SCH ×2 (06:06→18:33)
[2020-12-29 08:14] LABS: BASO % 0.6 % (0-2.0); HEMATOCRIT 26.4 % (35.4-49); HEMOGLOBIN 8.3 GM/dL (11.7-16.9); LYMPH % 30.7 % (8-40); MCH 25.7 pg (25.7-33.7); MCHC 31.6 g/dl (32.0-35.9); MEAN CELL VOLUME 81.3 fl (80-96); MONO % 9.1 % (3.8-10.2); NEUT % 58.6 % (42.8-82.8); PLATELET COUNT 245 10^3/uL (134-434); RBC 3.24 M/mm3 (4.00-5.60); RDW 14.6 % (11.9-15.9); WHITE BLOOD COUNT 3.9 K/mm3 (4.0-10.0)
[2020-12-29 08:23] LABS: CALCIUM 8.1 mg/dL (8.5-10.1)
[2020-12-29 08:24] LABS: ALBUMIN 2.1 g/dl (3.4-5.0); BLOOD UREA NITROGEN 5.8 mg/dL (7-18); MAGNESIUM 1.9 mg/dL (1.8-2.4)
[2020-12-29 08:27] LABS: CREATININE 1.4 mg/dL (0.55-1.3); PHOSPHOROUS 3.6 mg/dL (2.5-4.9)
[2020-12-29 08:28] LABS: BILIRUBIN,TOTAL 0.2 mg/dL (0.2-1)
[2020-12-29] MEDS ORDERED: PT OWN MED DRAWER 7, Y5N ONE ×2 (08:46→10:38)
[2020-12-29] MEDS: ACETAMINOPHEN 325 MG TABLET (FP) PO PRN ×2 (09:23→19:28)
[2020-12-29] MEDS: BICTEGRAV/EMTRICIT/TENOFOV (BIKTARVY) 50-200-25 MG TABLET PO SCH (09:24)
[2020-12-29 10:31] LABS: ANISOCYTOSIS 0; HELMET CELLS 0; HOWELL-JOLLY BODIES 0; MACROCYTOSIS 0; OVALOCYTE 0; PLATELET ESTIMATE NORMAL; ROULEAU 0; SICKELED CELLS 0; TARGET CELLS 0; TEAR DROP CELLS 0; TOXIC GRANULATION 0
[2020-12-29] MEDS: SULFAMETHOXAZOLE/TRIMETHOPRIM 800MG/160MG D.S. TABLET PO SCH (14:39)
[2020-12-29] MEDS: DAPTOMYCIN 680 MG in SODIUM CHLORIDE 50 ML IVPB SCH (19:27)
[2020-12-29 20:36] LABS: EPI CELLS 5 /uL (0-25.1); HYALINE CASTS 0 /uL (0-3.1); PH,URINE 7.5 (5.0-8.0); URINE APPEARANCE CLEAR; URINE BACTERIA 8 /uL (0-1359); URINE BILIRUBIN NEGATIVE (NEGATIVE); URINE COLOR YELLOW; URINE GLUCOSE (UA) NEGATIVE (NEGATIVE); URINE KETONE NEGATIVE (NEGATIVE); URINE LEUK ESTERASE NEGATIVE (NEGATIVE); URINE NITRITE NEGATIVE (NEGATIVE); URINE PROTEIN 2+ (NEGATIVE); URINE RBC 1 /uL (0-23.9); URINE UROBILINOGEN 0.2 mg/dL (0.2-1.0); URINE WBC 10 /uL (0-25.8)
[2020-12-30] MEDS: SODIUM CHLORIDE 1,000 ML IV SCH (05:55)
[2020-12-30] MEDS: NYSTATIN 500,000 UNITS/5 ML SUSPENSION PO SCH ×3 (05:58→17:12)
[2020-12-30 07:45] LABS: BASO % 0.8 % (0-2.0); EOS % 1.1 % (0-4.5); HEMATOCRIT 27.1 % (35.4-49); HEMOGLOBIN 8.4 GM/dL (11.7-16.9); LYMPH % 31.6 % (8-40); MCH 25.3 pg (25.7-33.7); MCHC 30.9 g/dl (32.0-35.9); MEAN CELL VOLUME 81.8 fl (80-96); MEAN PLT VOLUME 8.5 fl (7.5-11.1); NEUT % 55.5 % (42.8-82.8); PLATELET COUNT 291 10^3/uL (134-434); RBC 3.32 M/mm3 (4.00-5.60); RDW 14.6 % (11.9-15.9); WHITE BLOOD COUNT 3.5 K/mm3 (4.0-10.0)
[2020-12-30 08:06] LABS: BLOOD UREA NITROGEN 7.1 mg/dL (7-18)
[2020-12-30 08:07] LABS: ALBUMIN 2.2 g/dl (3.4-5.0)
[2020-12-30 08:10] LABS: CREATININE 1.5 mg/dL (0.55-1.3)
[2020-12-30 08:11] LABS: BILIRUBIN,TOTAL 0.2 mg/dL (0.2-1); PHOSPHOROUS 3.5 mg/dL (2.5-4.9); TOT PROT 7.3 g/dl (6.4-8.2)
[2020-12-30] MEDS: BICTEGRAV/EMTRICIT/TENOFOV (BIKTARVY) 50-200-25 MG TABLET PO SCH (09:44)
[2020-12-30 11:58] LABS: ANISOCYTOSIS 0; MACROCYTOSIS 0; PLATELET ESTIMATE NORMAL
[2020-12-30] MEDS: DAPTOMYCIN 680 MG in SODIUM CHLORIDE 50 ML IVPB SCH (15:32)
[2020-12-31] MEDS: NYSTATIN 500,000 UNITS/5 ML SUSPENSION PO SCH ×4 (00:09→17:37)
[2020-12-31 06:48] VITALS: TEMP 97.6
[2020-12-31 08:19] LABS: BASO % 1.4 % (0-2.0); EOS % 0.8 % (0-4.5); HEMATOCRIT 26.7 % (35.4-49); HEMOGLOBIN 8.4 GM/dL (11.7-16.9); LYMPH % 30.9 % (8-40); MCH 25.4 pg (25.7-33.7); MCHC 31.5 g/dl (32.0-35.9); MEAN CELL VOLUME 80.5 fl (80-96); MEAN PLT VOLUME 8.5 fl (7.5-11.1); MONO % 9.1 % (3.8-10.2); NEUT % 57.8 % (42.8-82.8); PLATELET COUNT 312 10^3/uL (134-434); RBC 3.32 M/mm3 (4.00-5.60); RDW 14.6 % (11.9-15.9); WHITE BLOOD COUNT 4.2 K/mm3 (4.0-10.0)
[2020-12-31 08:40] LABS: ALBUMIN 2.4 g/dl (3.4-5.0); CALCIUM 8.3 mg/dL (8.5-10.1); MAGNESIUM 2.1 mg/dL (1.8-2.4)
[2020-12-31 08:43] LABS: CREATININE 1.4 mg/dL (0.55-1.3)
[2020-12-31 08:45] LABS: BILIRUBIN,TOTAL 0.2 mg/dL (0.2-1); PHOSPHOROUS 3.6 mg/dL (2.5-4.9); TOT PROT 7.6 g/dl (6.4-8.2)
[2020-12-31] MEDS: SULFAMETHOXAZOLE/TRIMETHOPRIM 800MG/160MG D.S. TABLET PO SCH (10:46)
[2020-12-31 11:42] LABS: ANISOCYTOSIS 1+; MACROCYTOSIS 0; PLATELET ESTIMATE NORMAL
[2020-12-31] MEDS: BICTEGRAV/EMTRICIT/TENOFOV (BIKTARVY) 50-200-25 MG TABLET PO SCH (12:48)
[2020-12-31 14:28] VITALS: BP 121/74; PULSE 108
[2020-12-31] MEDS: DAPTOMYCIN 680 MG in SODIUM CHLORIDE 50 ML IVPB SCH (17:38)
[2020-12-31] MEDS: ACETAMINOPHEN 325 MG TABLET (FP) PO PRN (20:51)
== END 2020-12-31 23:30 | disposition short-term general hospital (02) | DRG 890 ==
LOC: JER 18:15 → JERBED 12-21 03:20 → J7W 12-21 22:29
PROVIDERS: ADMIT Hospitalist; ATTEND Internal Medicine
DX: A41.02 Sepsis due to Methicillin resistant Staphylococcus aureus (principal); N30.01 Acute cystitis with hematuria; N17.9 Acute kidney failure, unspecified; B20 Human immunodeficiency virus [HIV] disease; B37.0 Candidal stomatitis; B37.81 Candidal esophagitis; R00.0 Tachycardia, unspecified; R50.9 Fever, unspecified; D64.9 Anemia, unspecified; I95.9 Hypotension, unspecified; N15.1 Renal and perinephric abscess; E87.6 Hypokalemia; D69.6 Thrombocytopenia, unspecified
CPT/HCPCS: 36415; 71045-TC-FY; 74150-TC; 74176-TC; 76705-TC; 80053; 81003; 82272; 82550; 82570; 82728; 83010; 83540; 83550; 83605; 83615; 83690; 83735; 83930; 83935; 84100; 84156; 84300; 84484; 84540; 85025; 85027; 85045; 85610; 85730; 86160; 86359; 86360; 87040; 87086; 87186; 87205; 93005; 93010; 93306-TC; 99285-25; C9803; G0480; J0131; J0878; U0003; U0005